=== PATIENT | female | born 1990 | race African-American/Black ===

== ENCOUNTER 2016-10-07 08:15 | Emergency (ER) | payer SELFPAY ==
--- NOTE | 2016-10-07 10:23 | ER Document Report ---
HPI - HPI Patient complains to provider of: sore throat, ear pain Onset: Other Onset/Duration: Persistent - 2 days Quality of pain: Achy Pain Level: 4 Context: Patient presents complaining of left ear pain with sore throat for the past 2 days. No fever. Associated Symptoms: Earache, Sore throat, Other - Nasal congestion Exacerbated by: Denies Relieved by: Denies Similar symptoms previously: Yes Recently seen / treated by doctor: No - ROS ROS below otherwise negative: Yes Systems Reviewed and Negative: Yes All other systems reviewed and negative - EENT EENT: REPORTS: Sore Throat, Ear Pain, Congestion - CARDIOVASCULAR Cardiovascular: DENIES: Chest pain - GASTROINTESTINAL Gastrointestinal: DENIES: Nausea, Patient vomiting, Diarrhea - REPRODUCTIVE Reproductive: DENIES: : - MUSCULOSKELETAL Musculoskeletal: DENIES: Back Pain - DERM Skin Color: Normal Skin Problems: None Past Medical History - General Information source: Patient - Social History Smoking Status: Never Smoker Frequency of alcohol use: None Drug Abuse: None Occupation: certified nursing assistant instructor Lives with: Family Family History: Reviewed & Not Pertinent Patient has suicidal ideation: No Patient has homicidal ideation: No - Medical History Medical History: Negative Renal/ Medical History: Denies: Hx Peritoneal Dialysis Surgical Hx: Negative - Immunizations Hx Diphtheria, Pertussis, Tetanus Vaccination: Yes Vertical Provider Document - CONSTITUTIONAL Agree With Documented VS: Yes Exam Limitations: No Limitations General Appearance: WD/WN, No Apparent Distress - INFECTION CONTROL TRAVEL OUTSIDE OF THE [place] IN LAST 30 DAYS: No - HEENT HEENT: Atraumatic, Normocephalic, Pharyngeal Tenderness, Tympanic Membrane Red. negative: Pharyngeal Exudate, Pharyngeal Erythema, Tympanic Membrane Bulging - NECK Neck: Normal Inspection, Supple. negative: Lymphadenopathy-Left, Lymphadenopathy-Right - RESPIRATORY Respiratory: Breath Sounds Normal, No Respiratory Distress O2 Sat by Pulse Oximetry: 100 - CARDIOVASCULAR Cardiovascular: Regular Rate, Regular Rhythm, No Murmur - BACK Back: Normal Inspection. negative: CVA Tenderness-Right, CVA Tenderness-Left - MUSCULOSKELETAL/EXTREMETIES Musculoskeletal/Extremeties: GLORIA LOPEZ - NEURO Level of Consciousness: Awake, Alert, Appropriate Motor/Sensory: No Motor Deficit - DERM Integumentary: Warm, Dry, No Rash Course - Vital Signs Vital signs: Temp Pulse Resp BP Pulse Ox 98.5 F 62 16 123/62 100 10/07/16 08:19 10/07/16 08:19 10/07/16 08:19 10/07/16 08:19 10/07/16 08:19 - Laboratory Laboratory results interpreted by me: 10/07/16 10:21 Labs- Entire Visit 10/07/16 09:05 Group A Strep Rapid NEGATIVE Discharge - Discharge Clinical Impression: Sore throat Otalgia Qualifiers: Laterality: left Qualified Code(s): H92.02 - Otalgia, left ear Condition: Stable Disposition: HOME, SELF-CARE Instructions: Sore Throat ([facility]), Amoxicillin ([facility]), Oral Narcotic Medication ( [facility]) Additional Instructions: Return immediately for any new or worsening symptoms Followup with your primary care provider, call tomorrow to make a followup appointment If you start to develop fever or has continued worsening of left ear pain you can start the antibiotic. Prescriptions: Acetaminophen with Codeine [Acetaminophen-Cod #3 Tablet] 1 each PO Q6 PRN #15 tablet PRN Reason: Amoxicillin 500 mg PO TID #30 tablet Forms: Return to Work Referrals: [facility] [Provider Group] - Follow up as needed
[2016-10-07 10:34] VITALS: BP 115/63
== END 2016-10-07 10:33 | disposition home or self-care (01) ==
LOC: ER 08:15
DX: J02.9 Acute pharyngitis, unspecified (principal); H92.02 Otalgia, left ear; R09.81 Nasal congestion
CPT/HCPCS: 87070; 87880; 99283

== ENCOUNTER 2016-10-08 04:11 | Emergency (ER) | payer SELFPAY ==
[2016-10-08] MEDS ORDERED: PREDNISOLONE SOD PHOS 15 MG/5 ML ORAL SYRING PO ONE (06:25)
--- NOTE | 2016-10-08 06:27 | ER Document Report ---
ED ENT - General Mode of Arrival: Ambulatory Information source: Patient TRAVEL OUTSIDE OF THE [place] IN LAST 30 DAYS: No - HPI Patient complains to provider of: Throat problem Associated symptoms: Other - See above - General Chief Complaint: Sore Throat Stated Complaint: SORE THROAT EAR PAIN Notes: Patient is a 26 year old female who presents to the emergency department with her mother, complaining of throat pain onset 3 days ago. Patient was seen at this facility yesterday for the same complaint and was sent home with Amoxicillin, patient reports it has not been helping. Patient states that her throat feels "hard" and it is painful to do anything. Patient has been taking Mucinex at home trying to break up her phlegm with no relief. Per mother, patient has been unable to swallow anything and is worried about her ability to take pills. (DOMO ESTRADA) - Related Data Allergies/Adverse Reactions: No Known Allergies Allergy (Verified 10/07/16 08:18) Past Medical History - General Information source: Patient - Social History Smoking Status: Unknown if Ever Smoked Occupation: private duty, care home Family History: Reviewed & Not Pertinent Patient has suicidal ideation: No Patient has homicidal ideation: No - Immunizations Hx Diphtheria, Pertussis, Tetanus Vaccination: Yes Review of Systems - Review of Systems Constitutional: No symptoms reported EENT: See HPI, Throat pain, Difficulty swallowing Cardiovascular: No symptoms reported Respiratory: No symptoms reported Gastrointestinal: No symptoms reported Genitourinary: No symptoms reported Female Genitourinary: No symptoms reported Musculoskeletal: No symptoms reported Skin: No symptoms reported Hematologic/Lymphatic: No symptoms reported Neurological/Psychological: No symptoms reported -: Yes All other systems reviewed and negative Physical Exam - Vital signs Interpretation: Normal - General General appearance: Appears well, Alert - HEENT Head: Normocephalic, Atraumatic Tympanic membrane: Normal Nasal: Other - mild congestion Pharynx: Erythema - viral looking. No: Other - edema Neck: Other - tenderness to palpation of anterior cervical area. No: Lymphadenopathy - Respiratory Respiratory status: No respiratory distress - Cardiovascular Rhythm: Regular - Extremities General upper extremity: Normal inspection General lower extremity: Normal inspection - Neurological Neuro grossly intact: Yes Cognition: Normal Orientation: AAOx4 [place] Coma Scale Eye Opening: Spontaneous Deena Coma Scale Verbal: Oriented Deena Coma Scale Motor: Obeys Commands Deena Coma Scale Total: 15 Speech: Normal - Psychological Associated symptoms: Normal affect, Normal mood - Skin Skin Temperature: Warm Skin Moisture: Dry Skin Color: Normal - Vital signs Vitals: Temp Pulse Resp BP Pulse Ox 98.9 F 59 L 20 131/81 H 97 10/08/16 04:21 10/08/16 04:21 10/08/16 04:21 10/08/16 04:21 10/08/16 04:21 Discharge - Discharge Clinical Impression: Viral syndrome Pharyngitis Qualifiers: Pharyngitis/tonsillitis etiology: unspecified etiology Qualified Code(s): J02.9 - Acute pharyngitis, unspecified Additional Instructions: Viral Syndrome The physician has diagnosed a viral infection. Viruses not only cause "colds," but can cause many different symptoms including generalized aching, fever, headache, cough, sore throat, diarrhea, nausea, vomiting, and fatigue. The treatment, for the most part, is simply relief of symptoms. This means that antibiotics are usually not given. Rest, fluids, pain medications and, occasionally, medication for the specific symptoms that are most bothersome will be prescribed. Use good handwashing to avoid passing the virus to others. Shared toys should be cleaned with disinfectant. Clean the toilets, sinks, and counter surfaces in bathrooms. Launder clothing in hot water. Contact the physician if you develop any new or unusual symptoms such as severe headache, stiff neck, high fever, chest pain, productive cough, or shortness of breath. You should be rechecked if you don't see marked improvement within seven to 10 days. CONTINUE THE AMOXICILLIN AND TYLENOL WITH CODEINE. DRINK PLENTY OF FLUIDS. START THE PRELONE THIS EVENING. GET PLENTY OF REST AND SLEEP. FOLLOW UP WITH A LOCAL MEDICAL DOCTOR IF NOT IMPROVING. Prescriptions: Prednisolone [Prelone 15mg/5ml] 15 mg PO Q8 #50 ml Forms: Return to Work Scribe Attestation: 10/08/16 06:31 I personally performed the services described in the documentation, reviewed and edited the documentation which was dictated to the scribe in my presence, and it accurately records my words and actions. (ALLEN MOJICA) Scribe Documentation - Scribe Written by Wily:: wily Arreaga, 10/08/16, [id number] acting as scribe for :: Rodrigue
[2016-10-08 06:49] VITALS: BP 128/75
== END 2016-10-08 06:46 | disposition home or self-care (01) ==
LOC: ER 04:11
DX: J02.9 Acute pharyngitis, unspecified (principal); B34.9 Viral infection, unspecified; R13.10 Dysphagia, unspecified; R09.81 Nasal congestion
CPT/HCPCS: 99282; J7510

== ENCOUNTER 2016-10-11 10:14 | Emergency (ER) | payer SELFPAY ==
[2016-10-11 10:25] VITALS: BP 125/66
[2016-10-11] MEDS ORDERED: IBUPROFEN 600 MG TABLET PO ONE (11:09)
--- NOTE | 2016-10-11 11:12 | ER Document Report ---
ED ENT - General Chief Complaint: Sore Throat Stated Complaint: THROAT PAIN/EAR PAIN Time seen by provider: 11:08 Mode of Arrival: Ambulatory Information source: Patient Notes: 26-year-old female presents to ED for sore throat with bilateral ear pain times a week here she was seen here on the first and the second for the same complaint. And was diagnosed with a viral illness both times. She had a negative strep test on the first. She states she needs further testing to find why her throat and ears hurt. She states she's had sinus drainage and postnasal drip since Friday. TRAVEL OUTSIDE OF THE [place] IN LAST 30 DAYS: No - HPI Patient complains to provider of: Ear problem, Throat problem Onset: Last week Onset/Duration: Persistent Quality of pain: Sharp Severity: Severe Pain Level: 5 Context: Recent Illness Location of pain: Ears, Nose, Sinus, Throat Associated symptoms: Ear pain, Runny nose, Sinus drainage, Sore throat Similar symptoms previously: Yes Recently seen / treated by doctor: Yes - Related Data Allergies/Adverse Reactions: No Known Allergies Allergy (Verified 10/07/16 08:18) Past Medical History - General Information source: Patient - Social History Smoking Status: Never Smoker Cigarette use (# per day): No Chew tobacco use (# tins/day): No Smoking Education Provided: No Frequency of alcohol use: None Drug Abuse: None Occupation: CARDIOLOGY NURSE PRACTITIONER Lives with: Family - Sister Family History: Arthritis, CAD, CVA, DM, Hyperlipidemia, Hypertension, Malignancy - Breast cancer, Thyroid Disfunction Patient has suicidal ideation: No Patient has homicidal ideation: No - Past Medical History Cardiac Medical History: Reports: None Pulmonary Medical History: Reports: None EENT Medical History: Reports: None Neurological Medical History: Reports: None Endocrine Medical History: Reports: None Renal/ Medical History: Reports: Hx Ovarian Cysts Malignancy Medical History: Reports: None GI Medical History: Reports: None Musculoskeltal Medical History: Reports None Skin Medical History: Reports None Psychiatric Medical History: Reports: None Traumatic Medical History: Reports: None Infectious Medical History: Reports: None Surgical Hx: Negative - Immunizations Hx Diphtheria, Pertussis, Tetanus Vaccination: Yes Review of Systems - Review of Systems Constitutional: Recent illness. denies: Fever EENT: Ear pain, Sinus discharge, Throat pain Cardiovascular: No symptoms reported Respiratory: No symptoms reported Gastrointestinal: No symptoms reported Genitourinary: No symptoms reported Female Genitourinary: No symptoms reported Musculoskeletal: No symptoms reported Skin: No symptoms reported Hematologic/Lymphatic: No symptoms reported Neurological/Psychological: No symptoms reported -: Yes All other systems reviewed and negative Physical Exam - Vital signs Vitals: Pulse Resp BP Pulse Ox 57 L 16 125/66 100 10/11/16 10:21 10/11/16 10:21 10/11/16 10:21 10/11/16 10:21 Interpretation: Normal, Hypotensive Notes: Temp 98.5 pulse 62 respirations 16 and pulse ox of 100% blood pressure 142/75 - General General appearance: Appears well, Alert - HEENT Head: Normocephalic, Atraumatic Eyes: Normal Pupils: PERRL Ears: Normal External canal: Normal Tympanic membrane: Normal Sinus: Normal Nasal: Purulent discharge, Swelling Mouth/Lips: Normal Mucous membranes: Normal Pharynx: Post nasal drainage. No: Erythema, Exudate, Tonsillar hypertrophy Neck: Normal - Respiratory Respiratory status: No respiratory distress Chest status: Nontender Breath sounds: Normal Chest palpation: Normal - Cardiovascular Rhythm: Regular Heart sounds: Normal auscultation Murmur: No - Abdominal Inspection: Normal Distension: No distension Bowel sounds: Normal Tenderness: Nontender Organomegaly: No organomegaly - Back Back: Normal, Nontender - Extremities General upper extremity: Normal inspection, Nontender, Normal color, Normal ROM , Normal temperature General lower extremity: Normal inspection, Nontender, Normal color, Normal ROM , Normal temperature, Normal weight bearing. No: Cas's sign - Neurological Neuro grossly intact: Yes Cognition: Normal Orientation: AAOx4 Deena Coma Scale Eye Opening: Spontaneous Deena Coma Scale Verbal: Oriented [place] Coma Scale Motor: Obeys Commands [place] Coma Scale Total: 15 Speech: Normal Motor strength normal: LUE, RUE, LLE, RLE Sensory: Normal - Psychological Associated symptoms: Normal affect, Normal mood - Skin Skin Temperature: Warm Skin Moisture: Dry Skin Color: Normal Course - Re-evaluation Re-evalutation: 10/11/16 12:01 Discussed labs with patient and written reports given to patient to follow-up with primary doctor. Patient states she does not have a primary doctor so we will give a list of the local primary doctors for her to choose one. Patient has a upper respiratory infection steps negative monos negative. - Vital Signs Vital signs: Temp Pulse Resp BP Pulse Ox 98.5 F 57 L 16 125/66 100 10/11/16 10:24 10/11/16 10:21 10/11/16 10:21 10/11/16 10:21 10/11/16 10:21 - Laboratory Result Diagrams: 10/11/16 10:58 10/11/16 10:58 Laboratory results interpreted by me: 10/11/16 10:58 WBC 15.4 H Absolute Neutrophils 11.1 H Discharge - Discharge Clinical Impression: Sore throat, Viral syndrome Pharyngitis Qualifiers: Pharyngitis/tonsillitis etiology: unspecified etiology Qualified Code(s): J02.9 - Acute pharyngitis, unspecified Condition: Stable Disposition: HOME, SELF-CARE Instructions: Family Physicians / Practices Additional Instructions: UPPER RESPIRATORY ILLNESS: You have a viral infection of the respiratory passages -- a "cold." This common infection causes nasal congestion, drainage, and often sore throat and cough. It is highly contagious. The disease usually lasts about 10 to 14 days. There is no "cure" for the viral infection -- it must run its course. If there is a complication, such as bacterial infection in the nose, sinuses, middle ear, or bronchial tubes, antibiotics may be required. The antibiotics won't affect the virus. Drink plenty of fluids. A humidifier may help. An expectorant medication or decongestant may make you more comfortable. Use acetaminophen or ibuprofen for fever or aches. See the doctor if fever persists over two days, if there is any significant worsening of your symptoms, or if you simply fail to improve as expected. DECONGESTANT MEDICATION: A decongestant medicine has been prescribed. Often this medicine is combined in the same tablet with an antihistamine or expectorant. This type of medicine is helpful in treating a bad cold or sinus condition, as well as in treatment of the nasal congestion of hay fever. It is not of much benefit for lung infections. Decongestant medicines are related to stimulants. They can cause an increase in blood pressure and heart rate. Persons with heart disease and high blood pressure should not take decongestants without discussing this with the physician. If you develop palpitations, chest pain, headache, or tremors, stop the medicine and consult your physician. COUGH-SUPPRESSANT & EXPECTORANT MEDICATION: You are to use a cough medication as needed for relief of symptoms. This medicine is a combination of an expectorant (to make the mucous thinner and more easily "coughed up") and a cough suppressant (to reduce the frequency of coughing). The cough-suppressant medicine is related to narcotics. You may experience mild nausea and sleepiness. Some patients who are very sensitive to narcotics may have stomach pain from this medicine. Taking the medicine with food reduces these side effects. Do not drive or work with machinery until you know how this medicine affects you. The expectorant should have no side effects. Iodine-containing expectorants (such as organidin) should not be taken by persons with active thyroid disease unless approved by your doctor. Call the doctor if you develop shortness of breath, hives, rash, itching, lightheadedness, or severe nausea and vomiting. USE OF ACETAMINOPHEN (Tylenol): Acetaminophen may be taken for pain relief or fever control. It's much safer than aspirin, offering a wider range of "safe" dosages. It is safe during . Some brand names are Tylenol, Panadol, Datril, Anacin 3, Tempra, and Liquiprin. Acetaminophen can be repeated every four hours. The following are maximum recommended dosages: >89 pounds or adults 650 mg to 900 mg Acetaminophen can be repeated every four hours. Maximum dose not to exceed 4000 mg a day. Anti-Inflammatory Medication You have received a prescription for an antiinflammatory agent. This is an excellent, safe drug for pain control. In addition, it has potent antiinflammatory effects which are beneficial, especially in the treatment of injuries, arthritis, or tendonitis. It's best to take this medicine with food. Persons with ulcer disease or allergy to aspirin should notify their physician of this before taking this drug. Take the medication exactly as prescribed. Don't take additional doses unless instructed to do so by your doctor. If you develop wheezing, shortness of breath, hives, faintness, stomach pain, vomiting, or dark black stools, return for re-evaluation at once. Salt and soda solution 1 quart of water 1 tablespoon of salt 1 teaspoon of baking soda Mixed 3 ingredients together and boil for 1 minute Placed in a covered quart jar Use 1/2 ounce of cold solution to gargle 3 times a day FOLLOW-UP CARE: If you have been referred to a physician for follow-up care, call the physician s office for an appointment as you were instructed or within the next two days. If you experience worsening or a significant change in your symptoms, notify the physician immediately or return to the Emergency Department at any time for re-evaluation. Forms: Return to Work
[2016-10-11 11:16] LABS: ABSOLUTE BASOPHILS # (AUTO) 0.1 10^3/uL (0.0-0.2); ABSOLUTE LYMPHOCYTES (AUTO) 2.9 10^3/uL (0.5-4.7); ABSOLUTE MONOCYTES (AUTO) 1.4 10^3/uL (0.1-1.4); ABSOLUTE NEUT (AUTO) 11.1 10^3/uL (1.7-8.2); BASOPHILS % (AUTO) 0.3 % (0-2); EOSINOPHILS % (AUTO) 0.1 % (0-6); HEMATOCRIT 40.9 % (36.0-47.0); HEMOGLOBIN 13.1 g/dL (12.0-15.5); HGB HCT DIFFERENCE -1.6; LYMPHOCYTES % (AUTO) 18.7 % (13-45); MEAN CORPUSCULAR HEMOGLOBIN 27.3 pg (27.0-33.4); MEAN CORPUSCULAR HGB CONC 32.1 g/dL (32.0-36.0); MEAN CORPUSCULAR VOLUME 85 fl (80-97); MONOCYTES % (AUTO) 8.8 % (3-13); RED CELL DISTRIBUTION WIDTH 13.7 % (11.5-14.0); SEGMENTED NEUTROPHILS % (AUTO) 72.1 % (42-78); WHITE BLOOD COUNT 15.4 10^3/uL (4.0-10.5)
[2016-10-11 11:37] LABS: ALANINE AMINOTRANSFERASE 24 U/L (9-52); ALBUMIN 4.3 g/dL (3.5-5.0); ALKALINE PHOSPHATASE 88 U/L (38-126); ANION GAP 14 (5-19); ASPARTATE AMINO TRANSFERASE 17 U/L (14-36); BILIRUBIN,DIRECT 0.4 mg/dL (0.0-0.4); BILIRUBIN,TOTAL 0.9 mg/dL (0.2-1.3); BLOOD UREA NITROGEN 15 mg/dL (7-20); CALCIUM 9.9 mg/dL (8.4-10.2); CARBON DIOXIDE 27 mmol/L (22-30); CHLORIDE 101 mmol/L (98-107); GLUCOSE 94 mg/dL (75-110); POTASSIUM 3.9 mmol/L (3.6-5.0); SODIUM 142.3 mmol/L (137-145); TOTAL PROTEIN 8.2 g/dL (6.3-8.2)
== END 2016-10-11 12:17 | disposition home or self-care (01) ==
LOC: ER 10:14
DX: J02.9 Acute pharyngitis, unspecified (principal); B34.9 Viral infection, unspecified; H92.03 Otalgia, bilateral
CPT/HCPCS: 36415; 80053; 85025; 86308; 87070; 87880; 99283

== ENCOUNTER → 2017-09-15 | Outpatient (CLI) | payer OTHER ==
--- NOTE | 2017-09-15 12:29 | RADIOLOGY REPORT (SQ) ---
EXAM DESCRIPTION: [facility] CHEST XRAY COMPLETED DATE/TIME: 09/15/2017 10:51 am REASON FOR STUDY: NONSPECIFIC REACTION TO SKIN TEST W/O ACTIVE TUBERCULOSIS COMPARISON: None. EXAM PARAMETERS: NUMBER OF VIEWS: One view. TECHNIQUE: Single frontal radiographic view of the chest acquired. RADIATION DOSE: NA LIMITATIONS: None. FINDINGS: LUNGS AND PLEURA: No opacities, masses or pneumothorax. No pleural effusion. MEDIASTINUM AND HILAR STRUCTURES: No masses. Contour normal. HEART AND VASCULAR STRUCTURES: Heart normal in size. Normal vasculature. BONES: Mild thoracic scoliosis is again noted. HARDWARE: None in the chest. OTHER: No other significant finding. IMPRESSION: NO ACUTE RADIOGRAPHIC FINDING IN THE CHEST. TECHNICAL DOCUMENTATION: JOB ID: [id number] [email or web address]- All Rights Reserved Reading location - IP/workstation name: [email or web address]
== END ==
LOC: RAD 10:25
DX: R76.11 Nonspecific reaction to tuberculin skin test without active tuberculosis (principal)